=== PATIENT | female | born 1980 | race African-American/Black ===

== ENCOUNTER 2016-04-26 10:47 | Outpatient (CLI) | payer MEDICAID, OTHER ==
[2016-04-26 11:34] LABS: Band 2 % (5-11); Eosinophils 3 % (0-10); Hemoglobin 12.7 g/dL (12.0-16.0); Lymphocytes 36 % (21-51); MDiff Complete? YES; Mean Corpuscular HGB CONC 31.3 g/dL (32.0-36.0); Mean Corpuscular Hemoglobin 25.2 pg (27.0-31.0); Mean Corpuscular Volume 80.4 fl (81.0-99.0); Mean Platelet Volume 9.3 fL (7.4-10.4); Monocytes 7 % (0-10); Neutrophil 51 % (42-75); Platelet Count 227 thou/uL (130-400); Red Blood Cell (RBC) Count 5.06 mill/uL (4.20-5.40); White Blood Cell (WBC) Count 5.3 thou/uL (4.8-10.8)
[2016-04-26 11:52] LABS: ALT (SGPT) 17 U/L (0-55); AST (SGOT) 16 U/L (5-34); Albumin 4.2 g/dL (3.5-5.0); Alkaline Phosphatase 74 U/L (40-150); Anion Gap 12 mmol/L (10-20); BUN (Urea Nitrogen) 17 mg/dL (7.0-18.7); Bilirubin, Total Less than 0.3 mg/dL (0.2-1.2); Calc. Creatinine Clearance 0 mL/min (70-130); Calcium 9.3 mg/dL (7.8-10.44); Carbon Dioxide 26 mmol/L (22-29); Cardiac Risk 3.5 (Less than 4.5); Chloride 104 mmol/L (98-107); Cholesterol 235 mg/dL (< 200 Desired); Estimated GFR-MDRD Greater than 90; Globulin 3.3 g/dL (2.4-3.5); Glucose 96 mg/dL (70-105); HDL Cholesterol 67 mg/dL (>60 Neg Risk); LDL Cholesterol, Calculated 155 mg/dL; Potassium 3.7 mmol/L (3.5-5.1); Protein, Total 7.5 g/dL (6.0-8.3); Sodium 138 mmol/L (136-145); Triglycerides 64 mg/dL (Less than 150)
[2016-04-26 11:59] LABS: Hemoglobin A1c 6.2 % (4.0-6.0)
[2016-04-26 17:36] LABS: Creatinine, Urine 172.78 mg/dL (47-110); Microalbumin Urine 13.8 mg/dL (0.5-50.0); Microalbumin/Creat Ratio 79.9 mg/g (Less than 30)
== END 2016-04-26 10:48 | disposition home or self-care (01) ==
LOC: MADLABBHPM 10:47
PROVIDERS: ATTEND Family Medicine
DX: E11.9 Type 2 diabetes mellitus without complications (principal)
CPT/HCPCS: 36415; 80053; 80061; 82043; 82570; 83036; 84443; 85025

== ENCOUNTER 2016-08-22 15:20 | Outpatient (CLI) | payer MEDICAID, OTHER ==
[2016-08-22 16:09] LABS: #Basophils 0.1 thou/uL (0.0-0.2); #Eosinphils 0.2 thou/uL (0.0-0.7); #Lymphocytes 1.9 thou/uL (1.20-3.40); #Monocytes 0.4 thou/uL (0.11-0.59); %Basophils 1.1 % (0.0-1.0); %Eosinophils 3.9 % (0.0-10.0); %Lymphocytes 41.1 % (21.0-51.0); %Monocytes 8.7 % (0.0-10.0); %Neutrophils 45.2 % (42.0-75.0); Hemoglobin 12.5 g/dL (12.0-16.0); Mean Corpuscular HGB CONC 32.1 g/dL (32.0-36.0); Mean Corpuscular Hemoglobin 25.7 pg (27.0-31.0); Mean Corpuscular Volume 79.9 fl (81.0-99.0); Mean Platelet Volume 10.4 fL (7.4-10.4); Platelet Count 184 thou/uL (130-400); RBC Distribution Width 16.3 % (11.5-14.5); Red Blood Cell (RBC) Count 4.85 mill/uL (4.20-5.40); White Blood Cell (WBC) Count 4.5 thou/uL (4.8-10.8)
[2016-08-22 16:22] LABS: Hemoglobin A1c 5.6 % (4.0-6.0)
[2016-08-22 16:24] LABS: ALT (SGPT) 19 U/L (8-55); AST (SGOT) 19 U/L (5-34); Albumin 4.1 g/dL (3.5-5.0); Alkaline Phosphatase 64 U/L (40-150); Anion Gap 11 mmol/L (10-20); BUN (Urea Nitrogen) 10 mg/dL (7.0-18.7); Bilirubin, Total 0.4 mg/dL (0.2-1.2); Calc. Creatinine Clearance 0 mL/min (70-130); Calcium 8.8 mg/dL (7.8-10.44); Carbon Dioxide 25 mmol/L (22-29); Chloride 106 mmol/L (98-107); Estimated GFR-MDRD Greater than 90; Glucose 80 mg/dL (70-105); Potassium 3.2 mmol/L (3.5-5.1); Protein, Total 7.1 g/dL (6.0-8.3); Sodium 139 mmol/L (136-145)
[2016-08-23 17:33] LABS: Creatinine, Urine 283.79 mg/dL (47-110); Microalbumin Urine 3.8 mg/dL (0.5-50.0); Microalbumin/Creat Ratio 13.4 mg/g (Less than 30)
== END 2016-08-22 15:21 | disposition home or self-care (01) ==
LOC: MADLABBHPM 15:20
PROVIDERS: ATTEND Family Medicine
DX: E11.9 Type 2 diabetes mellitus without complications (principal)
CPT/HCPCS: 36415; 80053; 82043; 83036; 85025

== ENCOUNTER 2023-09-12 16:51 | Emergency (ER) | payer OTHER, SELFPAY ==
[2023-09-12] MEDS ORDERED: Sodium Chloride 0.9% 1,000 ML ONE (21:00)
[2023-09-12] MEDS ORDERED: fentaNYL 50 mcg/mL 1 mL Vial ONE (21:12)
[2023-09-12] MEDS ORDERED: Sucralfate 1 GM/10 ML UDCUP ONE (21:25)
[2023-09-12 21:38] LABS: #Basophils 0.1 thou/uL (0.0-0.2); #Eosinphils 0.2 thou/uL (0.0-0.7); #Lymphocytes 2.3 thou/uL (1.20-3.40); #Monocytes 0.4 thou/uL (0.11-0.59); #Neutrophils 3.4 thou/uL (1.40-6.50); %Basophils 0.9 % (0.0-1.0); %Eosinophils 3.1 % (0.0-10.0); %Monocytes 6.8 % (0.0-10.0); %Neutrophils 53.2 % (42.0-75.0); Hematocrit 43.4 % (36.0-47.0); Hemoglobin 13.1 g/dL (12.0-16.0); Mean Corpuscular HGB CONC 30.2 g/dL (32.0-36.0); Mean Corpuscular Hemoglobin 24.8 pg (27.0-31.0); Mean Platelet Volume 10.9 fL (7.4-10.4); Platelet Count 208 10x3/uL (130-400); White Blood Cell (WBC) Count 6.4 10x3/uL (4.8-10.8)
[2023-09-12 21:39] LABS: Troponin I Less than 0.010 ng/mL (< 0.028)
[2023-09-12 21:44] LABS: Anion Gap 15 mmol/L (10-20); BUN (Urea Nitrogen) 15 mg/dL (7.0-18.7); Calc. Creatinine Clearance 0 mL/min (70-130); Carbon Dioxide 21 mmol/L (22-29); Chloride 106 mmol/L (98-107); Estimated GFR 90; Potassium 3.7 mmol/L (3.5-5.1); Sodium 138 mmol/L (136-145)
[2023-09-12 21:45] LABS: ALT (SGPT) 10 U/L (8-55); AST (SGOT) 13 U/L (5-34); Albumin 4.2 g/dL (3.5-5.0); Alkaline Phosphatase 91 U/L (40-110); Bilirubin, Total 0.6 mg/dL (0.2-1.2); Calcium 8.8 mg/dL (7.6-10.4); Globulin 3.2 g/dL (2.4-3.5); Glucose 89 mg/dL (70-105); Protein, Total 7.4 g/dL (6.0-8.3)
[2023-09-12] MEDS ORDERED: Sucralfate 1 GM/10 ML UDCUP PO SCH (21:45)
[2023-09-12] MEDS ORDERED: Ketorolac Tromethamine 30 MG (1 mL) VIAL ONE (22:07)
== END 2023-09-12 22:26 | disposition home or self-care (01) ==
LOC: MADERS 16:51
DX: S29.012A Strain of muscle and tendon of back wall of thorax, initial encounter (principal); I10 Essential (primary) hypertension; R07.9 Chest pain, unspecified; E11.9 Type 2 diabetes mellitus without complications; J45.909 Unspecified asthma, uncomplicated; Z86.711 Personal history of pulmonary embolism; Z79.899 Other long term (current) drug therapy; Z79.85 Long-term (current) use of injectable non-insulin antidiabetic drugs
CPT/HCPCS: 71046; 80053; 84484; 85025; 93005; 96361; 96374; 96375; J1885; J3010; J7050

== ENCOUNTER 2024-01-28 13:51 | Outpatient (CLI) | payer MEDICARE | END 2024-01-28 13:52 | disposition home or self-care (01) | LOC: MADRAD 13:51 | PROVIDERS: ATTEND Nurse Practitioner Family | DX: R10.84 Generalized abdominal pain (principal) | CPT/HCPCS: 74019 ==

== ENCOUNTER 2024-12-28 10:53 | Emergency (ER) | payer MEDICARE, OTHER ==
[~2024-12-28 10:53] MED LIST: Iopamidol 370 76% 100 ML VIAL ONE
[2024-12-28 13:17] LABS: #Basophils 0.0 thou/uL (0.0-0.2); #Eosinophils 0.0 thou/uL (0.0-0.7); #Lymphocytes 0.5 thou/uL (1.20-3.40); #Monocytes 0.1 thou/uL (0.11-0.59); #Neutrophils 5.2 thou/uL (1.40-6.50); %Basophils 0.5 % (0.0-1.0); %Eosinophils 0.1 % (0.0-10.0); %Lymphocytes 8.7 % (21.0-51.0); %Monocytes 1.9 % (0.0-10.0); %Neutrophils 88.8 % (42.0-75.0); Hematocrit 40.9 % (36.0-47.0); Hemoglobin 12.6 g/dL (12.0-16.0); Mean Corpuscular Hemoglobin 26.0 pg (27.0-31.0); Mean Corpuscular Volume 84.7 fl (78.0-98.0); Platelet Count 181 10x3/uL (130-400); Red Blood Cell (RBC) Count 4.84 mill/uL (4.20-5.40); White Blood Cell (WBC) Count 5.9 10x3/uL (4.8-10.8)
[2024-12-28 13:29] LABS: INR-International Normal Ratio 1.1; Prothrombin Time 14.0 sec (12.0-14.7)
[2024-12-28 13:39] LABS: ALT (SGPT) 19 U/L (Less than 34); AST (SGOT) 21 U/L (11-34); Albumin 3.7 g/dL (3.1-4.5); Alkaline Phosphatase 61 U/L (40-110); Anion Gap 20 mmol/L (10-20); BUN (Urea Nitrogen) 16 mg/dL (7.0-18.7); Bilirubin, Total 0.5 mg/dL (0.3-1.2); Calc. Creatinine Clearance 0 mL/min (70-130); Calcium 8.9 mg/dL (7.8-10.44); Carbon Dioxide 13 mmol/L (22-29); Chloride 110 mmol/L (98-107); Globulin 3.3 g/dL (2.4-3.5); Glucose 82 mg/dL (70-105); Potassium 3.4 mmol/L (3.5-5.1); Sodium 140 mmol/L (136-145)
[2024-12-28 13:40] LABS: PTT 26.0 sec (22.9-36.1)
[2024-12-28 13:43] LABS: Troponin I 0.036 ng/mL (< 0.028)
[2024-12-28] MEDS ORDERED: Lisinopril 10 MG TAB ONE (14:56)
[2024-12-28] MEDS ORDERED: Aspirin 325 MG TAB ONE (16:24)
[2024-12-28 16:54] LABS: Troponin I 0.040 ng/mL (< 0.028)
== END 2024-12-28 21:30 | disposition left against medical advice (07) ==
LOC: MADERS 10:53
DX: I21.4 Non-ST elevation (NSTEMI) myocardial infarction (principal); I10 Essential (primary) hypertension; R00.0 Tachycardia, unspecified; R79.89 Other specified abnormal findings of blood chemistry; U09.9 Post COVID-19 condition, unspecified; E87.20 Acidosis, unspecified; J45.909 Unspecified asthma, uncomplicated; E11.9 Type 2 diabetes mellitus without complications; E66.9 Obesity, unspecified; Z79.51 Long term (current) use of inhaled steroids; Z79.85 Long-term (current) use of injectable non-insulin antidiabetic drugs; Z79.899 Other long term (current) drug therapy
CPT/HCPCS: 36415; 71275; 80053; 83880; 84443; 84484; 85025; 85379; 85610; 85730; 93005; 96374; J2919; Q9967